=== PATIENT | male | born 1980 | race Caucasian/White ===

== ENCOUNTER 2018-05-30 10:56 | Emergency (ER) | payer SELFPAY ==
[2018-05-30] MEDS: morphine 4 MG/ML VIAL IV (11:28)
[2018-05-30] MEDS: ONDANSETRON 4 MG INJ IV (11:28)
== END 2018-05-30 12:15 | disposition home or self-care (01) ==
LOC: E/R 10:56
DX: S43.102A Unspecified dislocation of left acromioclavicular joint, initial encounter (principal); W18.39XA Other fall on same level, initial encounter; Y92.9 Unspecified place or not applicable
CPT/HCPCS: 73030; 99284-25